=== PATIENT | female | born 2000 | race Caucasian/White ===

== ENCOUNTER → 2018-07-31 | Outpatient (CLI) | payer MEDICAID ==
[2018-07-31 10:07] LABS: Basophils # (auto) 0 uL; Basophils % (auto) 0.5 % (0.0-2.0); Eosinophils # (auto) 0.1 uL; Eosinophils % (auto) 1.1 % (0.0-7.0); Hematocrit 35.8 % (36.0-46.0); Hemoglobin 12.1 g/dL (12.2-16.2); Lymphocytes # (auto) 1.1 uL; Lymphocytes % (auto) 20.5 % (10.0-50.0); Mean Corpuscular Hemoglobin 28.9 pg (28.0-32.0); Mean Corpuscular Hgb Conc. 33.7 g/dL (32.0-36.0); Mean Corpuscular Volume 85.8 fL (80.0-100.0); Monocytes # (auto) 0.5 uL; Monocytes % (auto) 8.9 % (0.0-12.0); Neutrophils # (auto) 3.7 uL; Platelet Count (auto) 252 10^3/uL (140-450); Red Blood Cells 4.17 10^6/uL (4.0-5.20); Red Cell Distribution Width 14.7 % (11.8-14.3); White Blood Cell 5.3 10^3/uL (4.4-10.8)
[2018-07-31 11:02] LABS: Alcohol, Urine < 3.0 mg/dL (0-5); Amphetamine Screen, Urine NEGATIVE (NEGATIVE); Barbiturate Scree,Urine NEGATIVE (NEGATIVE); Benzodiazephine Screen, Urine NEGATIVE (NEGATIVE); Cannabinoid Screen, Urine NEGATIVE (NEGATIVE); Cocaine Screen, Urine NEGATIVE (NEGATIVE); Opiate Scree,Urine NEGATIVE (NEGATIVE); Phencyclidine Screen, Urine NEGATIVE (NEGATIVE)
[2018-08-01 07:10] LABS: RPR Non Reactive (Non Reactive)
== END | disposition home or self-care (01) ==
LOC: LAB 09:26
PROVIDERS: ATTEND Obstetrics & Gynecology
DX: Z34.00 Encounter for supervision of normal first pregnancy, unspecified trimester (principal); Z3A.00 Weeks of gestation of pregnancy not specified
CPT/HCPCS: 36415; 80307; 83036; 85025; 86592; 86703; 86762; 86850; 86900; 86901; 87086; 87340; 87591

== ENCOUNTER → 2018-10-08 | Outpatient (CLI) | payer MEDICAID | END | disposition home or self-care (01) | LOC: LAB 13:23 | PROVIDERS: ATTEND Obstetrics & Gynecology | DX: O99.332 Smoking (tobacco) complicating pregnancy, second trimester (principal); Z3A.26 26 weeks gestation of pregnancy; Z20.2 Contact with and (suspected) exposure to infections with a predominantly sexual mode of transmission | CPT/HCPCS: 87591 ==

== ENCOUNTER → 2018-10-10 | Outpatient (CLI) | payer MEDICAID ==
[2018-10-10 10:26] LABS: Basophils # (auto) 0 uL; Basophils % (auto) 0.5 % (0.0-2.0); Eosinophils # (auto) 0.1 uL; Eosinophils % (auto) 0.9 % (0.0-7.0); Hematocrit 33.3 % (36.0-46.0); Hemoglobin 10.7 g/dL (12.2-16.2); Lymphocytes % (auto) 14.7 % (10.0-50.0); Mean Corpuscular Hemoglobin 28.2 pg (28.0-32.0); Mean Corpuscular Hgb Conc. 32.3 g/dL (32.0-36.0); Mean Corpuscular Volume 87.3 fL (80.0-100.0); Monocytes # (auto) 0.6 uL; Monocytes % (auto) 8.5 % (0.0-12.0); Neutrophils # (auto) 5.2 uL; Neutrophils % (auto) 75.4 % (37.0-80.0); Nucleated Red Blood Cells % 0.1 %; Platelet Count (auto) 241 10^3/uL (140-450); Red Blood Cells 3.81 10^6/uL (4.0-5.20); Red Cell Distribution Width 15.2 % (11.8-14.3); White Blood Cell 6.9 10^3/uL (4.4-10.8)
== END | disposition home or self-care (01) ==
LOC: LAB 10:06
PROVIDERS: ATTEND Obstetrics & Gynecology
DX: O99.810 Abnormal glucose complicating pregnancy (principal); Z3A.26 26 weeks gestation of pregnancy
CPT/HCPCS: 36415; 82951; 85025

== ENCOUNTER 2018-11-06 11:31 | Observation (INO) | payer MEDICAID | END 2018-11-06 13:33 | disposition home or self-care (01) | DRG 566 | LOC: LDRP 11:31 | PROVIDERS: ADMIT Specialist; ATTEND Specialist | DX: O24.419 Gestational diabetes mellitus in pregnancy, unspecified control (principal); Z3A.30 30 weeks gestation of pregnancy | CPT/HCPCS: 59025; 76818; 81002; 82948; 82962; G0378 ==

== ENCOUNTER 2018-11-09 07:45 | Observation (INO) | payer MEDICAID ==
[2018-11-09] MEDS ORDERED: PRENTAB40 PO (09:11)
== END 2018-11-09 09:08 | disposition home or self-care (01) | DRG 566 ==
LOC: LDRP 07:45
PROVIDERS: ADMIT Obstetrics & Gynecology; ATTEND Obstetrics & Gynecology
DX: O24.419 Gestational diabetes mellitus in pregnancy, unspecified control (principal); Z3A.30 30 weeks gestation of pregnancy
CPT/HCPCS: 59025; 76818; 81002; 82962; G0378

== ENCOUNTER 2018-11-12 07:43 | Observation (INO) | payer MEDICAID ==
[~2018-11-12 07:43] MED LIST: PRENTAB40 PO
== END 2018-11-12 09:00 | disposition home or self-care (01) | DRG 566 ==
LOC: LDRP 07:43
PROVIDERS: ADMIT Specialist; ATTEND Specialist
DX: O24.419 Gestational diabetes mellitus in pregnancy, unspecified control (principal); Z3A.31 31 weeks gestation of pregnancy
CPT/HCPCS: 76818; 82962; G0378; 59025; 81002; 82948

== ENCOUNTER 2018-11-21 08:00 | Observation (INO) | payer MEDICAID | END 2018-11-21 09:20 | disposition home or self-care (01) | DRG 566 | LOC: LDRP 08:00 | PROVIDERS: ADMIT Specialist; ATTEND Specialist | DX: O24.419 Gestational diabetes mellitus in pregnancy, unspecified control (principal); Z3A.32 32 weeks gestation of pregnancy | CPT/HCPCS: 76818; 82962; G0378; 59025; 81002; 82948 ==

== ENCOUNTER 2018-11-28 07:51 | Observation (INO) | payer MEDICAID | END 2018-11-28 09:25 | disposition home or self-care (01) | DRG 566 | LOC: LDRP 07:51 | PROVIDERS: ADMIT Obstetrics & Gynecology; ATTEND Obstetrics & Gynecology | DX: O24.419 Gestational diabetes mellitus in pregnancy, unspecified control (principal); Z3A.33 33 weeks gestation of pregnancy | CPT/HCPCS: 59025; 76818; 81002; 82962; G0378 ==

== ENCOUNTER 2018-12-05 07:53 | Observation (INO) | payer MEDICAID ==
[~2018-12-05] VITALS: Ht 167.6 cm; Wt 91.6 kg
[2018-12-05 09:25] LABS: Urine Bacteria FEW /hpf (None Seen); Urine Blood Negative /uL (Negative); Urine Specific Gravity 1.009 (1.001-1.035); Urine WBC 1 /hpf (0 - 5)
[2018-12-05 09:26] LABS: Protein, Urine 8.2 mg/dL (0.0-11.9)
[2018-12-05 09:33] LABS: 24 Hr. Total Protein, Urine 254.2 mg/24 Hr (<149.1)
== END 2018-12-05 09:12 | disposition home or self-care (01) | DRG 566 ==
LOC: LDRP 07:53
PROVIDERS: ADMIT Specialist; ATTEND Specialist
DX: O24.419 Gestational diabetes mellitus in pregnancy, unspecified control (principal); O13.3 Gestational [pregnancy-induced] hypertension without significant proteinuria, third trimester; Z3A.34 34 weeks gestation of pregnancy
CPT/HCPCS: 59025; 76818; 81001; 81002; 84156; G0378

== ENCOUNTER 2018-12-07 07:37 | Observation (INO) | payer MEDICAID ==
[2018-12-07 09:08] LABS: Basophils # (auto) 0 uL; Basophils % (auto) 0.3 % (0.0-2.0); Eosinophils # (auto) 0.1 uL; Eosinophils % (auto) 0.7 % (0.0-7.0); Hematocrit 34.9 % (36.0-46.0); Hemoglobin 11.4 g/dL (12.2-16.2); Lymphocytes # (auto) 1.3 uL; Lymphocytes % (auto) 13.1 % (10.0-50.0); Mean Corpuscular Hemoglobin 28.5 pg (28.0-32.0); Mean Corpuscular Hgb Conc. 32.8 g/dL (32.0-36.0); Mean Corpuscular Volume 87.1 fL (80.0-100.0); Monocytes # (auto) 1.2 uL; Monocytes % (auto) 11.8 % (0.0-12.0); Neutrophils # (auto) 7.5 uL; Neutrophils % (auto) 74.1 % (37.0-80.0); Platelet Count (auto) 284 10^3/uL (140-450); Red Cell Distribution Width 16.3 % (11.8-14.3); White Blood Cell 10.1 10^3/uL (4.4-10.8)
[2018-12-07 09:26] LABS: Albumin 2.5 g/dL (3.4-5.0); BUN/Creatinine Ratio 13.8; Potassium 3.5 mmol/L (3.5-5.1)
[2018-12-07 09:31] LABS: Bilirubin, Total 0.1 mg/dL (0.2-1.0); Total Protein 6.4 g/dL (6.4-8.2)
== END 2018-12-07 08:53 | disposition home or self-care (01) | DRG 566 ==
LOC: LDRP 07:37
PROVIDERS: ADMIT Obstetrics & Gynecology; ATTEND Obstetrics & Gynecology
DX: O13.3 Gestational [pregnancy-induced] hypertension without significant proteinuria, third trimester (principal); Z3A.34 34 weeks gestation of pregnancy
CPT/HCPCS: 36415; 59025; 80053; 81002; 84550; 85025; G0378

== ENCOUNTER → 2018-12-10 | Outpatient (CLI) | payer MEDICAID ==
[2018-12-10 09:42] LABS: Basophils # (auto) 0 uL; Basophils % (auto) 0.4 % (0.0-2.0); Eosinophils # (auto) 0.1 uL; Eosinophils % (auto) 0.6 % (0.0-7.0); Hematocrit 35.2 % (36.0-46.0); Hemoglobin 11.7 g/dL (12.2-16.2); Lymphocytes # (auto) 1.1 uL; Lymphocytes % (auto) 11.8 % (10.0-50.0); Mean Corpuscular Hemoglobin 28.9 pg (28.0-32.0); Mean Corpuscular Hgb Conc. 33.3 g/dL (32.0-36.0); Mean Corpuscular Volume 86.9 fL (80.0-100.0); Monocytes # (auto) 0.9 uL; Monocytes % (auto) 10.2 % (0.0-12.0); Neutrophils # (auto) 6.9 uL; Platelet Count (auto) 277 10^3/uL (140-450); Red Blood Cells 4.05 10^6/uL (4.0-5.20); Red Cell Distribution Width 16.1 % (11.8-14.3)
== END | disposition home or self-care (01) ==
LOC: LAB 09:21
PROVIDERS: ATTEND Obstetrics & Gynecology
DX: Z34.03 Encounter for supervision of normal first pregnancy, third trimester (principal); Z3A.35 35 weeks gestation of pregnancy
CPT/HCPCS: 36415; 85025; 86592; 87081

== ENCOUNTER 2018-12-12 19:45 | Observation (INO) | payer MEDICAID ==
[~2018-12-12] VITALS: Ht 167.6 cm; Wt 91.6 kg
[2018-12-12] MEDS ORDERED: LACTATED RINGER'S 1,000 ML IV ONE (20:50)
[2018-12-12] MEDS ORDERED: TERBUTALINE SULFATE 1 MG/ML 1ML VIAL SC ONE (20:56)
[2018-12-12] MEDS: TERBUTALINE SULFATE 1 MG/ML 1ML VIAL SC SCH ×2 (21:03→21:34)
== END 2018-12-12 23:05 | disposition home or self-care (01) | DRG 566 ==
LOC: LDRP 19:45
PROVIDERS: ADMIT Specialist; ATTEND Specialist
DX: O24.419 Gestational diabetes mellitus in pregnancy, unspecified control (principal); O62.9 Abnormality of forces of labor, unspecified; Z3A.35 35 weeks gestation of pregnancy
CPT/HCPCS: 59025; 76818; 81002; 82962; 96372; G0378; J3105; 96361; 96366

== ENCOUNTER 2018-12-17 11:52 | Observation (INO) | payer MEDICAID ==
[2018-12-17] MEDS ORDERED: LACTATED RINGER'S 1,000 ML IV ONE (13:45)
[2018-12-17] MEDS ORDERED: NIFEdipine 10 MG CAP PO ONE (13:45)
[2018-12-17] MEDS ORDERED: BETAMETHASONE ACET (6MG/ML) 5ML VIAL IM SCH (13:45)
[2018-12-18] MEDS ORDERED: BETAMETHASONE ACET (6MG/ML) 5ML VIAL IM SCH (10:00)
== END 2018-12-17 15:25 | disposition home or self-care (01) | DRG 566 ==
LOC: LDRP 11:52
PROVIDERS: ADMIT Specialist; ATTEND Specialist
DX: O24.419 Gestational diabetes mellitus in pregnancy, unspecified control (principal); O26.893 Other specified pregnancy related conditions, third trimester; N89.8 Other specified noninflammatory disorders of vagina; O13.3 Gestational [pregnancy-induced] hypertension without significant proteinuria, third trimester; Z3A.36 36 weeks gestation of pregnancy
CPT/HCPCS: 59025; 76818; 81002; 82962; 96372; G0378; J0702; 96361; 96366

== ENCOUNTER 2018-12-18 11:34 | Observation (INO) | payer MEDICAID ==
[2018-12-18 12:59] LABS: Basophils # (auto) 0 uL; Basophils % (auto) 0.2 % (0.0-2.0); Eosinophils # (auto) 0 uL; Eosinophils % (auto) 0.1 % (0.0-7.0); Hematocrit 36.1 % (36.0-46.0); Hemoglobin 11.5 g/dL (12.2-16.2); Lymphocytes # (auto) 1.4 uL; Lymphocytes % (auto) 11.4 % (10.0-50.0); Mean Corpuscular Hemoglobin 27.7 pg (28.0-32.0); Mean Corpuscular Hgb Conc. 31.8 g/dL (32.0-36.0); Mean Corpuscular Volume 87.2 fL (80.0-100.0); Monocytes # (auto) 1.2 uL; Monocytes % (auto) 10.1 % (0.0-12.0); Neutrophils # (auto) 9.3 uL; Neutrophils % (auto) 78.2 % (37.0-80.0); Platelet Count (auto) 269 10^3/uL (140-450); Red Blood Cells 4.14 10^6/uL (4.0-5.20); Red Cell Distribution Width 17.2 % (11.8-14.3); White Blood Cell 11.9 10^3/uL (4.4-10.8)
[2018-12-18 13:02] LABS: Urine WBC None Seen /hpf (0 - 5)
[2018-12-18 13:15] LABS: INR < 0.93 (0.9-1.15); Partial Thromboplastin Time 23.6 sec (23.64-32.05)
[2018-12-18 13:23] LABS: Albumin 2.7 g/dL (3.4-5.0); Potassium 3.6 mmol/L (3.5-5.1); Uric Acid 4.7 mg/dL (2.6-6.0)
[2018-12-18 13:26] LABS: BUN/Creatinine Ratio 10.9; Bilirubin, Total 0.2 mg/dL (0.2-1.0); Total Protein 7.1 g/dL (6.4-8.2)
[2018-12-18 13:42] LABS: Urine Bacteria FEW /hpf (None Seen); Urine Blood Negative /uL (Negative); Urine Specific Gravity 1.004 (1.001-1.035)
[2018-12-18] MEDS ORDERED: BETAMETHASONE ACET (6MG/ML) 5ML VIAL IM ONE (14:30)
== END 2018-12-18 14:40 | disposition home or self-care (01) | DRG 563 ==
LOC: LDRP 11:34
PROVIDERS: ADMIT Specialist; ATTEND Specialist
DX: O60.03 Preterm labor without delivery, third trimester (principal); O26.893 Other specified pregnancy related conditions, third trimester; N89.8 Other specified noninflammatory disorders of vagina; Z3A.36 36 weeks gestation of pregnancy
CPT/HCPCS: 36415; 59025; 80053; 81001; 81002; 82962; 84550; 85025; 85610; 85730; 96372; G0378; J0702

== ENCOUNTER 2018-12-20 08:00 | Observation (INO) | payer MEDICAID ==
[~2018-12-20] VITALS: Ht 167.6 cm; Wt 93.0 kg
[2018-12-20] MEDS ORDERED: NIF10C GT (08:27)
[2018-12-20 09:40] LABS: Protein, Urine 5.4 mg/dL (0.0-11.9)
[2018-12-20 09:50] LABS: 24 Hr. Total Protein, Urine 172.8 mg/24 Hr (<149.1)
== END 2018-12-20 09:55 | disposition home or self-care (01) | DRG 566 ==
LOC: LDRP 08:00
PROVIDERS: ADMIT Specialist; ATTEND Specialist
DX: O62.9 Abnormality of forces of labor, unspecified (principal); Z3A.36 36 weeks gestation of pregnancy
CPT/HCPCS: 59025; 76818; 81002; 84156; G0378

== ENCOUNTER 2018-12-24 14:01 | Observation (INO) | payer MEDICAID ==
[~2018-12-24] VITALS: Ht 167.6 cm; Wt 93.0 kg
[~2018-12-24 14:01] MED LIST changes: +NIF10C GT
== END 2018-12-24 15:20 | disposition home or self-care (01) | DRG 566 ==
LOC: LDRP 14:01
PROVIDERS: ADMIT Specialist; ATTEND Specialist
DX: O13.3 Gestational [pregnancy-induced] hypertension without significant proteinuria, third trimester (principal); O24.419 Gestational diabetes mellitus in pregnancy, unspecified control; Z3A.37 37 weeks gestation of pregnancy
CPT/HCPCS: 59025; 76818; 81002; 82948; 82962; G0378

== ENCOUNTER 2018-12-25 14:00 | Observation (INO) | payer MEDICAID ==
[2018-12-25 14:49] LABS: Basophils # (auto) 0 uL; Basophils % (auto) 0.3 % (0.0-2.0); Eosinophils # (auto) 0.1 uL; Eosinophils % (auto) 0.7 % (0.0-7.0); Hematocrit 36.1 % (36.0-46.0); Hemoglobin 11.7 g/dL (12.2-16.2); Lymphocytes # (auto) 1.4 uL; Lymphocytes % (auto) 13.3 % (10.0-50.0); Mean Corpuscular Hemoglobin 28.3 pg (28.0-32.0); Mean Corpuscular Hgb Conc. 32.6 g/dL (32.0-36.0); Mean Corpuscular Volume 86.8 fL (80.0-100.0); Monocytes # (auto) 1.1 uL; Monocytes % (auto) 10.4 % (0.0-12.0); Neutrophils # (auto) 7.9 uL; Neutrophils % (auto) 75.3 % (37.0-80.0); Nucleated Red Blood Cells % 0.1 %; Platelet Count (auto) 287 10^3/uL (140-450); Red Blood Cells 4.15 10^6/uL (4.0-5.20); Red Cell Distribution Width 17.3 % (11.8-14.3); White Blood Cell 10.5 10^3/uL (4.4-10.8)
[2018-12-25 15:01] LABS: Albumin 2.6 g/dL (3.4-5.0); Calcium 9.2 mg/dL (8.5-10.1); Potassium 3.4 mmol/L (3.5-5.1)
[2018-12-25 15:04] LABS: BUN/Creatinine Ratio 12.1; Bilirubin, Total 0.2 mg/dL (0.2-1.0); INR < 0.93 (0.9-1.15); Partial Thromboplastin Time 24.4 sec (23.64-32.05)
[2018-12-25 15:30] LABS: Urine Bacteria FEW /hpf (None Seen); Urine Blood TRACE /uL (Negative); Urine Specific Gravity 1.005 (1.001-1.035); Urine WBC 1 /hpf (0 - 5)
== END 2018-12-25 16:00 | disposition home or self-care (01) | DRG 566 ==
LOC: LDRP 14:00
PROVIDERS: ADMIT Obstetrics & Gynecology; ATTEND Obstetrics & Gynecology
DX: O26.893 Other specified pregnancy related conditions, third trimester (principal); N89.8 Other specified noninflammatory disorders of vagina; Z3A.37 37 weeks gestation of pregnancy
CPT/HCPCS: 36415; 59025; 80053; 81001; 81002; 84550; 85025; 85610; 85730; G0378

== ENCOUNTER 2018-12-27 07:30 | Observation (INO) | payer MEDICAID ==
[2018-12-27 08:37] LABS: Protein, Urine < 5.0 mg/dL (0.0-11.9)
[2018-12-27 09:09] LABS: 24 Hr. Total Protein, Urine 157.99968 mg/24 Hr (<149.1); Urine Total Volume, 24 Hours 3160 mL
== END 2018-12-27 09:00 | disposition home or self-care (01) | DRG 566 ==
LOC: LDRP 07:30
PROVIDERS: ADMIT Obstetrics & Gynecology; ATTEND Obstetrics & Gynecology
DX: O13.3 Gestational [pregnancy-induced] hypertension without significant proteinuria, third trimester (principal); O26.893 Other specified pregnancy related conditions, third trimester; O26.853 Spotting complicating pregnancy, third trimester; R51 Headache; Z3A.37 37 weeks gestation of pregnancy
CPT/HCPCS: 59025; 76818; 81002; 84156; G0378

== ENCOUNTER 2018-12-30 11:24 | Observation (INO) | payer MEDICAID | END 2018-12-30 12:50 | disposition home or self-care (01) | DRG 566 | LOC: LDRP 11:24 | PROVIDERS: ADMIT Obstetrics & Gynecology; ATTEND Obstetrics & Gynecology | DX: O24.419 Gestational diabetes mellitus in pregnancy, unspecified control (principal); O26.893 Other specified pregnancy related conditions, third trimester; N89.8 Other specified noninflammatory disorders of vagina; O13.3 Gestational [pregnancy-induced] hypertension without significant proteinuria, third trimester; O62.9 Abnormality of forces of labor, unspecified; Z3A.38 38 weeks gestation of pregnancy | CPT/HCPCS: 59025; 76818; 81002; G0378 ==

== ENCOUNTER 2018-12-31 21:50 | Inpatient (IN) | payer MEDICAID | END 2019-01-03 09:00 | disposition home or self-care (01) | LOC: LDRP 21:50 | PROC: 10E0XZZ Delivery of Products of Conception, External Approach (ICD-10-PCS; principal; ~2018-12-31) | PROC: 0UQM0ZZ Repair Vulva, Open Approach (ICD-10-PCS; ~2018-12-31) | DX: O80 Encounter for full-term uncomplicated delivery (principal); O24.420 Gestational diabetes mellitus in childbirth, diet controlled; Z3A.38 38 weeks gestation of pregnancy; Z37.0 Single live birth ==

== ENCOUNTER 2025-05-20 09:02 | Outpatient (CLI) | payer MEDICAID ==
[~2025-05-20 09:02] MED LIST changes: -NIF10C GT
== END 2025-05-20 17:00 | disposition home or self-care (01) ==
LOC: LAB 09:02
PROVIDERS: ATTEND Obstetrics & Gynecology
DX: O03.9 Complete or unspecified spontaneous abortion without complication (principal)
CPT/HCPCS: 36415; 84144; 84702

== ENCOUNTER 2025-05-22 06:22 | Outpatient (CLI) | payer MEDICAID | END 2025-05-25 17:00 | disposition home or self-care (01) | LOC: LAB 06:22 | PROVIDERS: ATTEND Obstetrics & Gynecology | DX: O03.9 Complete or unspecified spontaneous abortion without complication (principal) | CPT/HCPCS: 36415; 84702 ==

== ENCOUNTER 2025-05-29 06:14 | Outpatient (CLI) | payer MEDICAID | END 2025-05-29 17:00 | disposition home or self-care (01) | LOC: LAB 06:14 | DX: N93.9 Abnormal uterine and vaginal bleeding, unspecified (principal) | CPT/HCPCS: 36415; 84144; 84702 ==

== ENCOUNTER 2025-06-01 06:06 | Outpatient (CLI) | payer MEDICAID | END 2025-06-01 17:00 | disposition home or self-care (01) | LOC: LAB 06:06 | DX: N93.9 Abnormal uterine and vaginal bleeding, unspecified (principal) | CPT/HCPCS: 36415; 84144; 84702 ==

== ENCOUNTER 2025-06-17 06:09 | Outpatient (CLI) | payer MEDICAID | END 2025-06-17 17:00 | disposition home or self-care (01) | LOC: LAB 06:09 | DX: O23.40 Unspecified infection of urinary tract in pregnancy, unspecified trimester (principal); N39.0 Urinary tract infection, site not specified; Z11.3 Encounter for screening for infections with a predominantly sexual mode of transmission; Z31.430 Encounter of female for testing for genetic disease carrier status for procreative management; Z3A.00 Weeks of gestation of pregnancy not specified | CPT/HCPCS: 82951 ==